=== PATIENT | female | born 1990 | race Caucasian/White ===

== ENCOUNTER 2016-10-19 20:07 | Emergency (ER) | payer SELFPAY ==
[~2016-10-19] VITALS: Ht 157.5 cm; Wt 54.5 kg
[2016-10-19 20:12] VITALS: BP 129/75; PULSE 54; RESP 16; O2SAT 100
[2016-10-19 22:22] VITALS: BP 113/63; PULSE 93; RESP 18; O2SAT 98
--- NOTE | 2016-10-19 22:23 | ED.REPORT ---
HPI-Extremity Problem Lower Date of Service Oct 19, 2016 ED Provider: Jr Hurt MD Pt is a healthy 25 year old female presenting to the ED complaining of bruising and pain to her right lower leg. Pt states that she felt a bump in her right calf and then began having ecchymosis. She denies being on control, any injury, or hx of blood clot. She has not been on any recent long plane or car rides. Denies fever, nausea, vomiting, or LE swelling. Nursing Notes Stated Complaint: POSSIBLE BLOOD CLOT IN RIGHT LEG Chief Complaint: Extremity Trauma Nursing Notes Reviewed: Yes Allergies: Coded Allergies: No Known Allergies (Unverified , 10/19/16) General Time Seen by MD: 22:22 Chief Complaint Leg injury right Hx Obtained From: Patient Arrived By: Walk-in Onset Occurred: Just prior to arrival Symptom Duration: Since onset Location: : Leg right Quality: Painful Severity: Current: Moderate Severity: Maximum: Moderate Recent Healthcare: No recent doctor visit, No recent hospitalization Similar Sx Previous: No Past Medical History Past Medical History healthy Past Surgical History denies Smoking History Unknown if Ever Smoker Ambulatory Status Independent Review of Systems Constitutional: Denies: Fever Musculoskeletal: Reports: Extremity pain, Denies: Extremity swelling Complete sys rev & neg: except as marked. GI: Denies: Nausea, Vomiting Physical Exam Initial Vital Signs Vital Signs (First) Date Time Temp Pulse Resp B/P Pulse Ox O2 Delivery O2 Flow Rate FiO2 10/19/16 20:12 36.8 54 16 129/75 100 Room Air Initial VS: Reviewed General/Constitutional: Well-developed, Well-nourished Head / Eyes: Atraumatic, Normocephalic, PERRL ENT: Mucous membranes moist, Conjunctiva normal, No scleral icterus Respiratory: No respiratory distress Abdomen / GI: Soft, Non-tender, No guarding, No rebound, No distention Upper Extremities: Vascular intact, Neuro intact, No swelling, No tenderness Skin: Warm, Dry, No cyanosis Neurologic: Alert, Oriented, Nonfocal Psychiatric: Mood/affect normal, Behavior normal, Normal thought content Lower Extremity / Pelvis / MS: Atraumatic, No deformity, Neurologic intact, Vascular intact Right Leg / Calf: Positive: Ecchymosis present No cords, leg appears visually normal. No warmth, pulses intact. Interpretation & Diagnostics US Soft Tissue/Musculoskeletal US DVT: Conclusion: No evidence of right lower extremity deep venous thrombosis. Subcutaneous soft tissues probably thrombosed varicose vein. This report was transmitted to the emergency room at 10/19/2016 - 11:41:08 PM PDT. Exam Performed by: Radiologist Exam Type: Diagnostic Re-Eval/Medical Decision Re-Evaluation/Progress : Time of Eval: 23:37 Patient Status: Condition improved Re-Evaluation/Progress Note: Discussed plan for discharge. Pt understands and agrees. Counseled Regarding: Diagnosis, Lab results, Need for follow-up, When/why to return to ED Discharge & Departure Impression: Primary Impression: Superficial phlebitis Disposition: Home Discharge Condition All VS Reviewed: Yes Condition: Improved Additional Instructions: Your emergency room visit today included interview, examination, labs and ultrasound of your leg. There is no deep vein clot seen. Ultrasound showed a varicose vein which was clotted, so is not a dangerous condition and is treated with warm packs and elevation and ibuprofen. Take ibuprofen 400 mg 3 times a day. Call for a primary care follow-up, and consider establishing primary care. Emergency department for increasing leg swelling chest pain or difficulty breathing. Referrals: Geoffrey Copeland Attestation Portions of this note were transcribed by Stephenie Briceno. I, Dr. Hurt personally performed the history, physical exam and medical decision-making; I reviewed and confirmed the accuracy of the information in the transcribed note. Signed by : Lauro Undrewood, 10/19/2016. copies to: Geoffrey Copeland Donald L MD Oct 19, 2016 22:23 STEPHENIE BRICENO Oct 19, 2016 22:28
[2016-10-19 23:42] VITALS: BP 79/49; PULSE 56; RESP 20; O2SAT 98
--- NOTE | 2016-10-20 07:58 | DRSVH ---
PROCEDURE: US VEINOUS LEG DUPLEX UNILATERAL, RIGHT INDICATIONS: r leg pain and ecchymosis TECHNIQUE: Real-time imaging, as well as color and pulse Doppler interrogation, were performed of the lower extr emity deep veins from the inguinal ligament to the popliteal fossa. COMPARISON: None. FINDINGS: The deep veins are normally compressible, and free of intraluminal thrombus. Color and pu lse Doppler demonstrate normal phasic intraluminal flow. There is normal augmentation response to di stal compression maneuver. IMPRESSION: No DVT found. There is a small varicosity with slight nonobstructive superficial venous thrombus within. Dictated by: Victor Manuel Valdez M.D. on 10/20/2016 at 7:55 Approved by: Victor Manuel Valdez M.D. on 10/20/2016 at 7:56
== END 2016-10-19 23:44 | disposition home or self-care (01) ==
LOC: SED 20:07
DX: I80.01 Phlebitis and thrombophlebitis of superficial vessels of right lower extremity (principal)

== ENCOUNTER 2016-10-21 12:10 | Emergency (ER) | payer SELFPAY ==
[~2016-10-21] VITALS: Ht 157.5 cm; Wt 54.5 kg
[2016-10-21 12:14] VITALS: BP 119/85; PULSE 56; RESP 14; O2SAT 100
--- NOTE | 2016-10-21 12:14 | ED.REPORT ---
HPI-Chest Pain Under 40 Date of Service Oct 21, 2016 ED Provider: Dr. Elkins Pt is a 25 year old female who presents to the ED with concerns for 6/10 chest pain onset 0400 this morning. Pt reports that this pain is better with activity and worse with immobility. She states that the pain is associated with shortness of breath and tingling in her left arm. Pt states that she has recently been diagnosed with a varicose vein in her right calf, she is not on any medications. She reports additional physical activity yesterday. Pt admits to mild THC use, with some both yesterday and today. Nursing Notes Stated Complaint: HEART ATTACK SYMPTOMS Nursing Notes Reviewed: Yes Allergies: Coded Allergies: No Known Allergies (Unverified , 10/19/16) Scheduled PRN Naproxen (Naproxen) 500 Mg Tab 500 MG PO BID PRN PRN For Pain General Time Seen by MD: 12:13 Chief Complaint Chest pain Hx Obtained From: Patient Arrived By: Walk-in Sudden in Onset?: Yes Onset Occurred: 9 - 12 hours ago Symptom Duration: Since onset Location: : Chest left Quality: Painful Severity: Current: Mild Severity: Maximum: Moderate Similar Sx Previous: Yes Risk Factors )( PE Risk Stratification Risk factors reviewed PERC Rule PERC Result: All PERC criteria "No" Well's Criteria for PE Well's PE Score: 0-2 pts (low risk 3.6%) Past Medical History Past Medical History healthy Past Surgical History denies Smoking History Unknown if Ever Smoker Ambulatory Status Independent Review of Systems Constitutional: Denies: Chills, Fever, Malaise Respiratory: Denies: Shortness of breath, Wheezing Cardiovascular: Reports: Chest pain GI: Denies: Abdominal pain, Constipation, Diarrhea, Nausea, Vomiting Musculoskeletal: Denies: Back pain, Neck pain Skin: Denies Diaphoresis Neurologic: Denies: Change LOC, Dizziness, Headache, Weakness Complete sys rev & neg: except as marked. Physical Exam Initial Vital Signs Vital Signs (First) Date Time Temp Pulse Resp B/P Pulse Ox O2 Delivery O2 Flow Rate FiO2 10/21/16 12:14 36.4 56 14 119/85 100 Room Air Initial VS: Reviewed Head / Eyes: Atraumatic, Normocephalic, PERRL ENT: Mucous membranes moist, Conjunctiva normal, No scleral icterus Neck: Supple, Non-tender, Full range of motion Abdomen / GI: Soft, Non-tender, No guarding, No rebound, No distention Skin: Warm, Dry, No cyanosis Neurologic: Alert, Oriented, Nonfocal General/Constitutional: Awake, Alert, No acute distress, Well appearing, Well developed Respiratory / Chest: Atraumatic, Breath sounds NL, Breath sounds = bilat, No respiratory distress Tender about the L trapezius and L costochondral junction, anteriorly Pain with movement of L arm Cardiovascular: Heart rate NL, Regular rhythm, Heart sounds NL, No gallop, No murmurs, No rubs Interpretation & Diagnostics ECG Interpretation ECG Interpretation: SR - 47 Time: 12:52 Interpreted by: ED physician Normal ECG Interpretation: Normal axis, Normal intervals X-Ray Chest Interpretation Chest Xray Interpretation: IMPRESSION: No acute or active disease is seen in the two-view chest. Dictated by: Enoc Treviño M.D. on 10/21/2016 at 13:21 this report corresponds to the emergency room physicians ER dictated note. Interpretation / Wet Read by: Interpret - Radiologist Re-Eval/Medical Decision Med Decision/Clinical Course Patient presents with reproducible chest wall pain. EKG and chest x-ray are unremarkable. Of note the patient states she has a blood clot however 2 days prior she had an ultrasound which was unremarkable for DVT. Not tachycardic or hypoxic. She does not appear to be in any distress. Palpation of the chest wall and movement of the left arm directly reproduce her symptoms. Acute coronary syndrome, pulmonary embolism, pericarditis, and other life threatening pathology seemed very unlikely. Will discharge with naproxen and recommended close outpatient follow-up. Return precautions given Source of Hx: Old records Re-Evaluation/Progress : Time of Eval: 13:21 Re-Evaluation/Progress Note: Pt is rechecked and informed of her imaging results and the plan to discharge her at this time. She understands and agrees, all questions are addressed. Counseled Regarding: Diagnosis, Lab results, When/why to return to ED Discharge & Departure Primary Impression: Chest pain Disposition: Home Discharge Condition All VS Reviewed: Yes Condition: Stable Patient Instructions: Chest Pain (ED) Additional Instructions: The tests performs in the ER are normal. It seems that your pain is located on your chest wall. Take naproxen as prescribed for pain. Call a primary care doctor in the morning for a close follow-up appointment in the next few days. Return to the ER as needed for concerning signs and symptoms. Referrals: Geoffrey Copeland Attestation Portions of this note were transcribed by Gisselle Crooks. I, Dr. lEkins personally performed the history, physical exam and medical decision-making; I reviewed and confirmed the accuracy of the information in the transcribed note. Signed by: Lauro Younger, 10/21/2016 13:20 copies to: Geoffrey Copeland Timothy S DO Oct 21, 2016 12:14 MIRANDA CROOKS Oct 21, 2016 12:29
[2016-10-21] MEDS ORDERED: NPR500T PO (13:20)
--- NOTE | 2016-10-21 13:24 | DRSVH ---
PROCEDURE: X-RAY CHEST, TWO VIEWS ([id number]) INDICATIONS: chest pain TECHNIQUE: 2 views of the chest were acquired. COMPARISON: None. FINDINGS: Surgical changes and devices: quality assurance monitor body leads are seen over the chest. Lungs and pleura: No pleural effusions or pneumothorax. Lungs are clear. Mediastinum: Mediastinal contours are normal. Heart size is normal. Bones and chest wall: No suspicious bony abnormalities. Soft tissues appear unremarkable. IMPRESSION: No acute or active disease is seen in the two-view chest. Dictated by: Enoc Treviño M.D. on 10/21/2016 at 13:21 this report corresponds to the emergency [facility] physicians ER dictated note. Approved by: Enoc Treviño M.D. on 10/21/2016 at 13:22
[2016-10-21 13:36] VITALS: BP 99/70; PULSE 49; RESP 12; O2SAT 97
== END 2016-10-21 13:38 | disposition home or self-care (01) ==
LOC: SED 12:10
DX: R07.89 Other chest pain (principal)
CPT/HCPCS: 71020; 93005; 96372; 99284; J1885